=== PATIENT | male | born 1965 | race Caucasian/White ===

== ENCOUNTER 2022-02-06 20:49 | Outpatient (CLI) | payer BC, SELFPAY ==
[2022-02-06 19:44] LABS: FREE T4 2.04 ng/dL (0.76-1.46); TSH 14.21 uIU/mL (0.36-3.74)
[2022-02-07 22:06] LABS: T3, Total 168 ng/dL (97-169)
== END 2022-02-06 20:50 | disposition home or self-care (01) ==
LOC: LBO 20:53
PROVIDERS: PCP Internal Medicine; Visit Provider Internal Medicine Endocrinology, Diabetes & Metabolism
DX: E07.89 Other specified disorders of thyroid (principal)
CPT/HCPCS: 36415; 84439; 84443; 84480